=== PATIENT | male | born 1945 | race Caucasian/White ===

== ENCOUNTER 2018-11-10 05:22 | Day surgery (SDC) | payer OTHER, MEDICARE ==
[2018-11-04 15:47] VITALS: BMI 24.9
[~2018-11-10 05:22] MED LIST: VANCOMYCIN 500 MG VIAL (RESTRICTED TO ID ONLY) IVPB ONE
[2018-11-10 06:40] VITALS: TEMP 98.5
[2018-11-10] MEDS: PHENYLEPHRINE 2.5% OPHTH SOLN 15 ML BOTTLE ONE ×3 (06:55→07:05)
[2018-11-10] MEDS: OFLOXACIN 0.3% OPHTHALMIC SOLUTION 5 ML BOTTLE ONE ×3 (06:55→07:05)
[2018-11-10] MEDS: KETOROLAC TROMETHAMINE 0.5% EYE DROP 1 DROP DROPS ONE ×3 (06:55→07:05)
[2018-11-10] MEDS: CYCLOPENTOLATE HCL 1% OPHTH SOLN 2 ML BOTTLE ONE ×3 (06:55→07:05)
[2018-11-10] MEDS: TROPICAMIDE 1% OPHTH SOLN 15 ML BOTTLE ONE ×3 (06:55→07:05)
[2018-11-10] MEDS ORDERED: EPINEPHrine/PF 1 MG/1 ML (1:1,000) AMPULE ONE (07:29)
[2018-11-10] MEDS ORDERED: VANCOMYCIN 500 MG VIAL (RESTRICTED TO ID ONLY) ONE (07:29)
[2018-11-10] MEDS ORDERED: POVIDONE-IODINE 5% OPHTHALMIC PREP 30 ML SOLUTION ONE (07:30)
[2018-11-10] MEDS ORDERED: TETRACAINE 0.5% OPHTH SOLN 2 ML BOTTLE ONE (07:30)
[2018-11-10] MEDS ORDERED: BSS (NA/CA/MG/K) BALANCED SALT SOLUTION OPHTH SOLN 15 ML BOTTLE ONE (07:30)
[2018-11-10] MEDS ORDERED: ACETYLCHOLINE 1:100 INTRA-OCUL 20 MG/2 ML KIT ONE (07:30)
[2018-11-10] MEDS ORDERED: LIDOCAINE HCL/PF 1% SDV 5ML VIAL ONE (07:30)
[2018-11-10] MEDS ORDERED: WATER FOR INJ,STERILE 10 ML ONE (07:30)
[2018-11-10] MEDS ORDERED: MIDAZOLAM HCL 2 MG/2 ML SINGLE DOSE VIAL ONE (07:39)
[2018-11-10] MEDS ORDERED: SUCCINYLCHOLINE CHLORIDE 200 MG/10 ML VIAL ONE (07:39)
[2018-11-10] MEDS ORDERED: PROPOFOL 20 ML ONE (07:39)
[2018-11-10] MEDS ORDERED: ePHEDrine SULFATE 50 MG/1 ML AMPULE ONE (07:39)
[2018-11-10] MEDS ORDERED: OFLOXACIN 0.3% OPHTHALMIC SOLUTION 5 ML BOTTLE OP SCH (07:45)
[2018-11-10] MEDS ORDERED: PHENYLEPHRINE 2.5% OPHTH SOLN 15 ML BOTTLE OP SCH (07:45)
[2018-11-10] MEDS ORDERED: CYCLOPENTOLATE HCL 1% OPHTH SOLN 2 ML BOTTLE OP SCH (07:45)
[2018-11-10] MEDS ORDERED: ACETAMINOPHEN 325 MG TABLET (FP) PO PRN (07:45)
[2018-11-10] MEDS ORDERED: KETOROLAC TROMETHAMINE 0.5% EYE DROP 1 DROP DROPS OP SCH (07:45)
[2018-11-10] MEDS ORDERED: TROPICAMIDE 1% OPHTH SOLN 15 ML BOTTLE OP SCH (07:45)
[2018-11-10] MEDS ORDERED: TETRACAINE 0.5% OPHTH SOLN 2 ML BOTTLE TP ONE (07:58)
[2018-11-10] MEDS ORDERED: LIDOCAINE HCL 1% PRESERVATIVE FREE - 30ML VIAL IO ONE (08:14)
[2018-11-10] MEDS ORDERED: CHONDROITIN SU A/HYALUR SOD 1 KIT IO ONE (08:15)
[2018-11-10] MEDS ORDERED: EPINEPHrine/PF 1 MG/1 ML (1:1,000) AMPULE SQ ONE (08:20)
[2018-11-10] MEDS ORDERED: VANCOMYCIN 500 MG VIAL (RESTRICTED TO ID ONLY) IVPB ONE (08:34)
--- NOTE | 2018-11-10 08:47 | SPEC ---
DATE OF OPERATION: DATE OF DICTATION: 11/10/2018 PREOPERATIVE DIAGNOSIS: Cataract, right eye. POSTOPERATIVE DIAGNOSIS: Cataract, right eye. OPERATION: Phacoemulsification with posterior chamber intraocular lens implantation, right eye. Lens used [id number], 19.5 diopter power, serial number [id number]. SURGEON: Melisa Mazariegos M.D. ANESTHESIA: Topical MAC. COMPLICATIONS: None. PROCEDURE: The patient was brought to the operating room and correctly identified along with the operative site and the correct intraocular lens brown. The patient was then prepped and draped in the usual sterile fashion including 5% Betadine solution in the conjunctival sac and an eyelid drape. An eyelid speculum was then placed in the eye. A paracentesis port was created and approximately 0.5 mL of preservative free Lidocaine was then injected into the eye. Viscoelastic was then injected to inflate the anterior chamber. A temporal clear corneal wound was created. A continuous circular capsulorrhexis was performed. The nucleus was then hydrodissected with BSS and removed with phacoemulsification. The remaining cortical material was irrigated and aspirated. Viscoelastic was injected to inflate the capsular bag and the intraocular lens was then implanted into the capsular bag. The remaining Viscoelastic was irrigated and aspirated from the eye. The IOL was noted to be well centered and completely covered by the anterior capsulorrhexis. Topical vancomycin was placed and the eye patched and shielded. All wounds were tested and found to be watertight. No suture was placed. The eye was then shielded. The patient was then discharged from the operating room in stable condition. MELISA MAZARIEGOS M.D. [id number]
[2018-11-10] MEDS ORDERED: CHONDROITIN SU A/HYALUR SOD 1 KIT ONE (09:45)
[2018-11-10 10:29] VITALS: BP 130/67; PULSE 61
== END 2018-11-10 09:45 | disposition home or self-care (01) ==
LOC: JASU-SURG 05:22
PROVIDERS: ATTEND Ophthalmology
PROC: 08RJ3JZ Replacement of Right Lens with Synthetic Substitute, Percutaneous Approach (ICD-10-PCS; principal; 2018-11-10 08:00)
DX: H26.9 Unspecified cataract (principal)

== ENCOUNTER 2020-10-22 21:07 | Emergency (ER) | payer OTHER, MEDICARE ==
[2020-10-22 21:17] VITALS: BP 142/83; PULSE 100; TEMP 98.4; BMI 24.4
[2020-10-22 22:52] LABS: HEMATOCRIT 42.5 % (35.4-49); HEMOGLOBIN 13.9 GM/dL (11.7-16.9); MCHC 32.7 g/dl (32.0-35.9); MEAN PLT VOLUME 10.2 fl (7.5-11.1); PLATELET COUNT 223 K/MM3 (134-434); RBC 4.48 M/mm3 (4.00-5.60); RDW 14.2 % (11.9-15.9); WHITE BLOOD COUNT 5.2 K/mm3 (4.0-10.0)
[2020-10-22 22:53] LABS: URINE APPEARANCE CLEAR; URINE BILIRUBIN NEGATIVE (NEGATIVE); URINE COLOR YELLOW; URINE GLUCOSE (UA) NEGATIVE (NEGATIVE); URINE KETONE NEGATIVE (NEGATIVE); URINE LEUK ESTERASE NEGATIVE (NEGATIVE); URINE NITRITE NEGATIVE (NEGATIVE); URINE PROTEIN NEGATIVE (NEGATIVE); URINE UROBILINOGEN 0.2 mg/dL (0.2-1.0)
[2020-10-22 23:12] LABS: POTASSIUM 4.4 mmol/L (3.5-5.1)
[2020-10-22 23:14] LABS: BLOOD UREA NITROGEN 20.9 mg/dL (7-18); MAGNESIUM 2.3 mg/dL (1.8-2.4)
[2020-10-22 23:17] LABS: CREATININE 1.3 mg/dL (0.55-1.3)
[2020-10-22 23:19] LABS: BILIRUBIN,TOTAL 0.6 mg/dL (0.2-1); TOT PROT 7.9 g/dl (6.4-8.2)
== END 2020-10-23 00:10 | disposition home or self-care (01) ==
LOC: JER 21:07
DX: N40.1 Benign prostatic hyperplasia with lower urinary tract symptoms (principal)
CPT/HCPCS: 36415; 76856-TC; 80053; 81003; 83735; 84100; 85027; 87086; 93005; 93010; 99284-25

== ENCOUNTER 2020-10-24 20:36 | Emergency (ER) | payer OTHER, MEDICARE ==
[2020-10-24 20:45] VITALS: BMI 24.4
[2020-10-24 22:02] VITALS: BP 114/79; TEMP 98.4
[2020-10-24 22:08] LABS: PH,URINE 5.5 (5.0-8.0); URINE APPEARANCE CLEAR; URINE BILIRUBIN NEGATIVE (NEGATIVE); URINE COLOR YELLOW; URINE GLUCOSE (UA) NEGATIVE (NEGATIVE); URINE KETONE NEGATIVE (NEGATIVE); URINE LEUK ESTERASE NEGATIVE (NEGATIVE); URINE NITRITE NEGATIVE (NEGATIVE); URINE PROTEIN NEGATIVE (NEGATIVE)
[2020-10-24 23:00] VITALS: PULSE 72
== END 2020-10-24 23:19 | disposition home or self-care (01) ==
LOC: JER 20:36
DX: L29.3 Anogenital pruritus, unspecified (principal)
CPT/HCPCS: 36415; 81003; 87086; 87491; 87591; 99283-25

== ENCOUNTER 2020-10-27 18:52 | Emergency (ER) | payer OTHER, MEDICARE ==
[2020-10-27 19:03] VITALS: TEMP 98.4; BMI 24.4
[2020-10-27 19:59] LABS: PH,URINE 5.5 (5.0-8.0); URINE APPEARANCE CLEAR; URINE BILIRUBIN NEGATIVE (NEGATIVE); URINE COLOR YELLOW; URINE GLUCOSE (UA) NEGATIVE (NEGATIVE); URINE KETONE NEGATIVE (NEGATIVE); URINE LEUK ESTERASE NEGATIVE (NEGATIVE); URINE NITRITE NEGATIVE (NEGATIVE); URINE PROTEIN NEGATIVE (NEGATIVE); URINE UROBILINOGEN 0.2 mg/dL (0.2-1.0)
[2020-10-27] MEDS ORDERED: POLYETHYLENE GLYCOL 3350 119 GM BTL PO ONE (20:15)
[2020-10-27 20:23] VITALS: BP 136/75; PULSE 86
== END 2020-10-27 20:28 | disposition home or self-care (01) ==
LOC: JER 18:52
DX: R30.0 Dysuria (principal)
CPT/HCPCS: 81003; 87086; 99284-25

== ENCOUNTER 2022-06-25 07:38 | Emergency (ER) | payer OTHER, MEDICARE ==
[2022-06-25 07:49] VITALS: BP 135/60; PULSE 79; RESP 18; TEMP 98; BMI 22.5
[2022-06-25] MEDS ORDERED: LIDOCAINE 5% TOPICAL PATCH TP ONE (09:01)
[2022-06-25] MEDS ORDERED: KETOROLAC TROMETHAMINE 15 MG/ML VIAL IM ONE (09:01)
[2022-06-25] MEDS ORDERED: KETOROLAC TROMETHAMINE 15 MG/ML VIAL ONE (09:40)
[2022-06-25] MEDS ORDERED: LIDOCAINE 5% TOPICAL PATCH ONE (09:40)
[2022-06-25] MEDS ORDERED: LIDOCAINE PATCH REMOVAL MC ONE (22:00)
== END 2022-06-25 10:00 | disposition home or self-care (01) ==
LOC: JERFT 07:38 → JER 07:38 → JERFT 10:00
PROC: 3E0233Z Introduction of Anti-inflammatory into Muscle, Percutaneous Approach (ICD-10-PCS; principal; 2022-06-25)
DX: M54.9 Dorsalgia, unspecified (principal)
CPT/HCPCS: 71046-TC-FY; 99284-25

== ENCOUNTER 2022-07-02 08:49 | Emergency (ER) | payer OTHER, MEDICARE ==
[2022-07-02 08:54] VITALS: BP 130/80; PULSE 82; RESP 18; TEMP 97.8; BMI 23.1
[2022-07-02] MEDS ORDERED: LIDOCAINE 5% TOPICAL PATCH TP ONE (10:05)
[2022-07-02] MEDS ORDERED: LIDOCAINE 5% TOPICAL PATCH ONE (10:18)
[2022-07-02] MEDS ORDERED: LIDOCAINE PATCH REMOVAL MC SCH (22:00)
== END 2022-07-02 10:43 | disposition home or self-care (01) ==
LOC: JER 08:49
DX: M79.601 Pain in right arm (principal)
CPT/HCPCS: 99283-25